=== PATIENT | male | born 1995 | race Hispanic/Latino ===

== ENCOUNTER 2023-02-24 21:53 | Emergency (ER) | payer OTHER, SELFPAY ==
[2023-02-24] MEDS ORDERED: Lidocaine 1% PF 5 ML VIAL ONE (22:48)
[2023-02-24] MEDS ORDERED: Bacitracin 1 PK ONE (23:39)
== END 2023-02-24 23:42 | disposition home or self-care (01) ==
LOC: ERS 21:53
DX: S01.112A Laceration without foreign body of left eyelid and periocular area, initial encounter (principal); M25.521 Pain in right elbow; W01.198A Fall on same level from slipping, tripping and stumbling with subsequent striking against other object, initial encounter
CPT/HCPCS: 12011